=== PATIENT | male | born 1965 | race Caucasian/White ===

== ENCOUNTER 2018-08-25 04:46 | Emergency (ER) | payer SELFPAY ==
[2018-08-25 05:54] LABS: Hematocrit 49.3 % (39.6-49.0); RBC Red Blood Cell Count 5.98 M/uL (4.33-5.43)
[2018-08-25 06:01] LABS: ALT/SGPT 22 U/L (12-78); AST/SGOT 12 U/L (15-37); Albumin 3.5 g/dL (3.4-5.0); Alkaline Phosphatase 128 U/L (45-117); BUN Blood Urea Nitrogen 17 mg/dL (7-18); Bicarbonate 29 mmol/L (21-32); Bilirubin Total 0.4 mg/dL (0.2-1.0); Glucose Level 296 mg/dL (74-106); Potassium 4.3 mmol/L (3.5-5.1); Protein, Total 8.2 g/dL (6.4-8.2); Sodium Level 136 mmol/L (136-145)
[2018-08-25] MEDS ORDERED: KETOROLAC 30 MG/ML INJ ONE (06:01)
--- NOTE | 2018-08-25 07:04 | EDPHYS ---
Physician Documentation [facility] Name: Catarino Arguelles Age: 53 yrs Sex: Male : 1965 Arrival Date: 08/25/2018 Time: 04:48 Bed 6 Private MD: ED Physician Greg Aguilar HPI: 08/25 06:09 This 53 yrs old Male presents to ER via Ambulatory with complaints of Scrotal tw4 Pain, Acute Onset. 06:09 The patient presents with scrotal pain, of the left side. Onset: The symptoms/episode tw4 began/occurred 11 month(s) ago, and became worse yesterday. Modifying factors: The symptoms are alleviated by nothing, the symptoms are aggravated by nothing. Associated signs and symptoms: The patient has no apparent associated signs or symptoms. Severity of symptoms: At their worst the symptoms were moderate, in the emergency department the symptoms are unchanged. The patient has not experienced similar symptoms in the past. Historical: - Allergies: 05:08 No Known Allergies; aa1 - Home Meds: 05:08 None [Active]; aa1 - PMHx: 05:08 Hypertension; CHF; accidental amputation of L thumb; aa1 - PSHx: 05:08 R arm sx; aa1 - Immunization history:: Flu vaccine is not up to date. - Social history:: Smoking status: Patient uses tobacco products, smokes one-half pack cigarettes per day. - Ebola Screening: : No symptoms or risks identified at this time. ROS: 06:09 Constitutional: Negative for fever, chills, and weight loss, Eyes: Negative for injury, tw4 pain, redness, and discharge, Cardiovascular: Negative for chest pain, palpitations, and edema, Respiratory: Negative for shortness of breath, cough, wheezing, and pleuritic chest pain, Abdomen/GI: Negative for abdominal pain, nausea, vomiting, diarrhea, and constipation. 06:09 : Positive for testicular pain Exam: 06:09 Constitutional: This is a well developed, well nourished patient who is awake, alert, tw4 and in no acute distress. Head/Face: Normocephalic, atraumatic. Chest/axilla: Normal chest wall appearance and motion. Nontender with no deformity. No lesions are appreciated. Cardiovascular: Regular rate and rhythm with a normal S1 and S2. No gallops, murmurs, or rubs. Normal PMI, no JVD. No pulse deficits. Respiratory: Lungs have equal breath sounds bilaterally, clear to auscultation and percussion. No rales, rhonchi or wheezes noted. No increased work of breathing, no retractions or nasal flaring. Abdomen/GI: Soft, non-tender, with normal bowel sounds. No distension or tympany. No guarding or rebound. No evidence of tenderness throughout. Skin: Warm, dry with normal turgor. Normal color with no rashes, no lesions, and no evidence of cellulitis. MS/ Extremity: Pulses equal, no cyanosis. Neurovascular intact. Full, normal range of motion. 06:09 : Male external genitalia: swelling, testicle, is noted in the left inguinal area, tenderness, of the right testicle is noted, is palpated in the left inguinal area, that is moderate. Vital Signs: 05:08 BP 133 / 91; Pulse 93; Resp 18; Temp 97.9; Pulse Ox 95% on R/A; Weight 102.06 kg; aa1 Height 5 ft. 9 in. (175.26 cm); Pain 8/10; 05:54 BP 118 / 85; Pulse 89; Resp 18; Pulse Ox 94% on R/A; aa1 07:03 BP 130 / 79; Pulse 87; Resp 17 S; Pulse Ox 95% on R/A; jd3 05:08 Body Mass Index 33.23 (102.06 kg, 175.26 cm) aa1 MDM: 05:02 Patient medically screened. tw4 06:09 Differential diagnosis: appendicitis, UTI. Data reviewed: vital signs, nurses notes. tw4 Test interpretation: by ED physician or midlevel provider: ECG. Counseling: I had a detailed discussion with the patient and/or guardian regarding: the historical points, exam findings, and any diagnostic results supporting the discharge/admit diagnosis. 08/25 05:02 Order name: CBC w/o diff; Complete Time: 06:49 tw4 08/25 05:02 Order name: CMP; Complete Time: 06:49 tw4 08/25 05:02 Order name: US Scrotum Testicles tw4 Administered Medications: 05:54 Drug: TORadol 30 mg Route: IVP; Site: right antecubital; aa1 06:45 Follow up: Response: No adverse reaction jd3 Disposition: 08/25/18 07:03 Discharged to Home. Impression: left varicocele, right hydrocele, testicular pain. - Condition is Stable. - Discharge Instructions: Varicocele, Hydrocele, Adult. - Prescriptions for Tylenol- Codeine #3 300-30 mg Oral Tablet - take 2 tablet by ORAL route every 6 hours As needed; 30 tablet. Zofran 4 mg Oral Tablet - take 1 tablet by ORAL route every 12 hours As needed; 20 tablet. - Medication Reconciliation Form, Thank You Letter, Antibiotic Education, Prescription Opioid Use form. - Follow up: Antonio Luz MD; When: 1 week; Reason: Further diagnostic work-up, Recheck today's complaints, Continuance of care. Follow up: Emergency Department; When: As needed; Reason: Fever > 102 F, Worsening of condition. Signatures: Dispatcher [employer] EDMS Karena Mitchell RN RN aa1 Richie Salgado MD MD ps1 Greg Aguilar MD MD tw4 Juanis Paz RN RN ca1 Kwabena Wong RN jd3 Corrections: (The following items were deleted from the chart) 07:15 07:03 08/25/2018 07:03 Discharged to Home. Impression: left varicocele; right ca1 hydrocele; testicular pain. Condition is Stable. Forms are Medication Reconciliation Form, Thank You Letter, Antibiotic Education, Prescription Opioid Use. Follow up: Antonio Luz; When: 1 week; Reason: Further diagnostic work-up, Recheck today's complaints, Continuance of care. Follow up: Emergency Department; When: As needed; Reason: Fever > 102 F, Worsening of condition. ps1
--- NOTE | 2018-08-25 07:04 | ER ---
Nurse's Notes [facility] Name: Catarino Arguelles Age: 53 yrs Sex: Male : 1965 Arrival Date: 08/25/2018 Time: 04:48 Bed 6 Private MD: Diagnosis: left varicocele;right hydrocele;testicular pain Presentation: 08/25 05:02 Presenting complaint: Patient states: he has had a lump in his right testicle for about aa1 11 months and was seen for it in [place] and told he need to follow up with a surgeon but never did and yesterday it started hurting much more intensely. Reports the pain is so bad he can barely walk. Transition of care: patient was not received from another setting of care. Onset of symptoms was 2017. Risk Assessment: Do you want to hurt yourself or someone else? Patient reports no desire to harm self or others. Initial Sepsis Screen: Does the patient meet any 2 criteria? No. Patient's initial sepsis screen is negative. Does the patient have a suspected source of infection? No. Patient's initial sepsis screen is negative. Care prior to arrival: None. 05:02 Method Of Arrival: Ambulatory aa1 05:02 Acuity: JESUS 3 aa1 Historical: - Allergies: 05:08 No Known Allergies; aa1 - Home Meds: 05:08 None [Active]; aa1 - PMHx: 05:08 Hypertension; CHF; accidental amputation of L thumb; aa1 - PSHx: 05:08 R arm sx; aa1 - Immunization history:: Flu vaccine is not up to date. - Social history:: Smoking status: Patient uses tobacco products, smokes one-half pack cigarettes per day. - Ebola Screening: : No symptoms or risks identified at this time. Screenin:14 Abuse screen: Denies threats or abuse. Denies injuries from another. Nutritional aa1 screening: No deficits noted. Tuberculosis screening: No symptoms or risk factors identified. Fall Risk None identified. Assessment: 05:10 General: Appears in no apparent distress. comfortable, Behavior is calm, cooperative, aa1 appropriate for age. Pain: Complains of pain in right testicle, right femoral area and right inguinal area Pain began 11 months ago Is continuous. Neuro: Level of Consciousness is awake, alert, obeys commands, Oriented to person, place, time, situation, Moves all extremities. Full function Gait is steady. Respiratory: Airway is patent Respiratory effort is even, unlabored, Respiratory pattern is regular, symmetrical. GI: Patient currently denies constipation, diarrhea, nausea, vomiting. : Reports pain in right scrotum, Denies inability to void, pain with urination. EENT: No signs and/or symptoms were reported regarding the EENT system. Derm: Skin is intact, is healthy with good turgor, Skin is pink, warm \T\ dry. Musculoskeletal: Circulation, motion, and sensation intact. Capillary refill < 3 seconds. 05:54 Reassessment: Patient appears in no apparent distress at this time. Patient and/or aa1 family updated on plan of care and expected duration. Pain level reassessed. Patient is alert, oriented x 3, equal unlabored respirations, skin warm/dry/pink. Awaiting lab results. computer technology trainer at bedside for study. 07:05 Reassessment: Patient appears in no apparent distress at this time. Patient is alert, ca1 oriented x 3, equal unlabored respirations, skin warm/dry/pink. Vital Signs: 05:08 BP 133 / 91; Pulse 93; Resp 18; Temp 97.9; Pulse Ox 95% on R/A; Weight 102.06 kg; aa1 Height 5 ft. 9 in. (175.26 cm); Pain 8/10; 05:54 BP 118 / 85; Pulse 89; Resp 18; Pulse Ox 94% on R/A; aa1 07:03 BP 130 / 79; Pulse 87; Resp 17 S; Pulse Ox 95% on R/A; jd3 05:08 Body Mass Index 33.23 (102.06 kg, 175.26 cm) aa1 ED Course: 04:48 Patient arrived in ED. am2 05:01 Karena Mitchell, RN is Primary Nurse. aa1 05:02 Greg Aguilar MD is Attending Physician. tw4 05:05 Triage completed. aa1 05:08 Arm band placed on right wrist. aa1 05:14 Patient has correct armband on for positive identification. Bed in low position. Call aa1 light in reach. Pulse ox on. NIBP on. 05:20 Initial lab(s) drawn, by me, sent to lab. Inserted saline lock: 20 gauge in right aa1 antecubital area, using aseptic technique. Blood collected. 06:14 Ultrasound completed. Patient tolerated well. aa4 06:15 US Scrotum Testicles In Process Unspecified. EDMS 07:02 Antonio Luz MD is Referral Physician. ps1 07:10 No provider procedures requiring assistance completed. IV discontinued, intact, ca1 bleeding controlled, No redness/swelling at site. Pressure dressing applied. 07:13 Juanis Paz, RN is Primary Nurse. ca1 Administered Medications: 05:54 Drug: TORadol 30 mg Route: IVP; Site: right antecubital; aa1 06:45 Follow up: Response: No adverse reaction jd3 Outcome: 07:03 Discharge ordered by MD. ps1 07:10 Discharged to home ambulatory. ca1 07:10 Condition: stable 07:10 Discharge instructions given to patient, Instructed on discharge instructions, follow up and referral plans. medication usage, Demonstrated understanding of instructions, follow-up care, medications, Prescriptions given X 2. 07:15 Patient left the ED. ca1 Signatures: Dispatcher [employer] EDVA Karena Mitchell, RN RN aa1 Yola Davis aa4 Yola Domingo am2 Kwabena Wong RN RN jd3 Richie Salgado MD MD ps1 Greg Aguilar MD MD tw4 Juanis Paz, RN RN ca1
--- NOTE | 2018-08-25 08:26 | RAD REPORT ---
EXAM DESCRIPTION: US - Scrotum Testicles - 08/25/2018 6:15 am CLINICAL HISTORY: PAIN COMPARISON: No comparisons FINDINGS: The right testicle 4.2 x 2.4 cm. No intratesticular masses or evidence of testicular torsi on. Prominent right spermatic cord noted. The left testicle 5.1 x 2.9 cm. No intratesticular masses or evidence of testicular torsion. Both epididymides are normal in size and appearance. Small left varicocele. Small amount of fluid in the right scrotal sac. IMPRESSION: No evidence of testicular torsion. Prominent right spermatic cord.
== END 2018-08-25 07:15 | disposition home or self-care (01) ==
LOC: ER 04:46
DX: I86.1 Scrotal varices (principal); N43.3 Hydrocele, unspecified; F17.210 Nicotine dependence, cigarettes, uncomplicated
CPT/HCPCS: 36415; 76870; 80053; 85027; 96374; 99284